=== PATIENT | female | born 1980 | race Caucasian/White ===

== ENCOUNTER 2018-11-06 22:04 | Emergency (ER) | payer MEDICAID ==
[~2018-11-06] VITALS: Ht 152.4 cm; Wt 55.4 kg
[2018-11-06 22:06] VITALS: Ht 152.4 cm; Wt 55.4 kg
[2018-11-06] MEDS ORDERED: ONDANSETRON 4 MG INJ IV STA (23:13)
[2018-11-06] MEDS ORDERED: KETOROLAC 30 MG INJ IV STA (23:13)
--- NOTE | 2018-11-06 23:20 | ERD ---
ER Documentation Chief Complaint Chief Complaint MARTINEZ X'S 1 DAY, HX OF MIGRAINES HPI Patient is a 38 years old female with past medical history of migraines presents to the clinic for intractable migrainous headache since morning. Patient reports frontal headache that is sensitive to light with nausea. Patient denies emesis. Patient admits to taking sumatriptan and topiramate without resolution of symptoms. Patient rates her pain 10 out of 10. Patient reports the pain is similar to her normal migrainous event and denies thunderclap headache. ROS All systems reviewed and are negative except as per history of present illness. Medications Home Meds Active Scripts Ibuprofen* (Motrin*) 800 Mg Tab, 800 MG PO Q6H PRN for PAIN AND OR ELEVATED TEMP, #30 TAB Prov:PATRICK SALGADO PA-C 11/07/18 Methylprednisolone* (Medrol* DOSE PACK) 4 Mg/Dose-Pack Tab.ds.pk, 4 MG PO . DIRECTED for 5 Days, PACKET Prov:PATRICK SALGADO PA-C 11/07/18 Allergies Allergies: Coded Allergies: No Known Allergy (Verified Allergy, Unknown, 02/22/07) PMhx/Soc Medical and Surgical Hx: pt denies Medical Hx, pt denies Surgical Hx History of Surgery: No Anesthesia Reaction: No Hx Neurological Disorder: No Hx Respiratory Disorders: No Hx Cardiac Disorders: No Hx Psychiatric Problems: No Hx Miscellaneous Medical Probl: No Hx Alcohol Use: No Hx Substance Use: No Hx Tobacco Use: No Smoking Status: Never smoker FmHx Family History: No diabetes, No coronary disease, No other Physical Exam Vitals Vital Signs Date Temp Pulse Resp B/P (MAP) Pulse Ox O2 O2 Flow FiO2 Time Delivery Rate 11/06/18 97.0 70 20 120/61 100 22:06 (80) Physical Exam Const: Patient in some mild distress covering her eyes with her hands in a position. Head: Atraumatic Eyes: Normal Conjunctiva. PERRLA. No nystagmus. Neck: Full range of motion. No meningismus. Resp: Clear to auscultation bilaterally Cardio: Regular rate and rhythm, no murmurs Neur: Awake and alert Psych: Normal Mood and Affect Result Diagram: 11/06/18 6203 Results 24 hrs Laboratory Tests Test 11/06/18 23:45 11/06/18 23:54 POC Beta HCG, Qualitative NEGATIVE White Blood Count 5.8 10^3/ul Red Blood Count 3.51 10^6/ul Hemoglobin 11.2 g/dl Hematocrit 32.4 % Mean Corpuscular Volume 92.3 fl Mean Corpuscular Hemoglobin 31.9 pg Mean Corpuscular Hemoglobin Concent 34.6 g/dl Red Cell Distribution Width 11.7 % Platelet Count 198 10^3/UL Mean Platelet Volume 9.7 fl Immature Granulocytes % 0.000 % Neutrophils % 49.0 % Lymphocytes % 38.8 % Monocytes % 10.1 % Eosinophils % 1.4 % Basophils % 0.7 % Nucleated Red Blood Cells % 0.0 /100WBC Immature Granulocytes # 0.000 10^3/ul Neutrophils # 2.9 10^3/ul Lymphocytes # 2.3 10^3/ul Monocytes # 0.6 10^3/ul Eosinophils # 0.1 10^3/ul Basophils # 0.0 10^3/ul Nucleated Red Blood Cells # 0.0 10^3/ul Current Medications Medications Dose Sig/Lisa Start Time Status Last (Trade) Ordered Route PRN Stop Time Admin Dose Reason Admin 125 mg ONCE ONCE 11/06/18 DC 11/07/18 Methylprednis IV 23:30 11/06/18 00:09 olone Sodium 23:31 Succinate (Solu-Medrol) Ketorolac 30 mg ONCE STAT 11/06/18 DC 11/07/18 Tromethamine IV 23:13 11/06/18 00:09 (Toradol) 23:16 Ondansetron 4 mg ONCE STAT 11/06/18 DC 11/07/18 HCl (Zofran IV 23:13 11/06/18 00:09 Inj) 23:16 Sodium 500 ml @ Q1H ONCE 11/06/18 DC 11/07/18 Chloride 500 mls/hr IV 23:30 00:10 11/07/18 00:29 Procedures/MDM Patient was seen and evaluated for migrainous headache without complications. Patient was given Solu-Medrol 125 IV, Zofran 4 mg IV, Toradol 30 mg IV, 500 mL normal saline with resolution of symptoms. CBC is unremarkable. Low suspicion for meningitis. Patient stable ready for discharge. Follow-up with PCP. Patient will be discharged with ibuprofen and Medrol Dosepak. Departure Diagnosis: Primary Impression: Migraine aura, persistent Status migrainosus presence: with status migrainosus Intractability: intractable Qualified Codes: G43.511 - Persistent migraine aura without cerebral infarction, intractable, with status migrainosus Condition: Stable Patient Instructions: Migraine Headache: Stages and Treatment Referrals: [facility] Additional Instructions: Paciente aconseja volver a Departamento de urgencias inmediatamente para sntomas nuevos o que empeoran . Paciente aconseja posteriores con el PCP en 2-3 antonio . Paciente verbaliza la comprehensin y est de acuerdo con el tratamiento y el curso de accin. Si el paciente no tiene ninguna de atencin primaria pueden seguir con [facility] [address] [place] [address] o LOCATED WITHIN [facility] + [address] [address] PATRICK SALGADO PA-C Nov 06, 2018 23:20
[2018-11-06] MEDS ORDERED: METHYLPREDNISOLONE 125 MG INJ IV ONE (23:30)
[2018-11-06] MEDS ORDERED: SOD CHLORIDE 0.9% 500 ML IV ONE (23:30)
[2018-11-07] MEDS ORDERED: MED4DP PO (00:20)
[2018-11-07] MEDS ORDERED: IBUP800T48 PO (00:20)
[2018-11-07 00:55] VITALS: BP 118/64; PULSE 78; RESP 20
== END 2018-11-07 00:59 | disposition home or self-care (01) ==
LOC: FTE 22:04
DX: G43.511 Persistent migraine aura without cerebral infarction, intractable, with status migrainosus (principal)
CPT/HCPCS: 81025; 85025; 96374; 96375; J1885; J2405; J2930; J7040; Z7502